=== PATIENT | male | born 1985 | race Caucasian/White ===

== ENCOUNTER 2021-11-23 14:04 | Inpatient (IN) | payer OTHER ==
[2021-11-23 16:30] VITALS: BMI 25.7
[2021-11-23] MEDS ORDERED: guaiFENesin 200 MG/10 ML 10 ML UNIT-DOSE CUPS PO PRN (16:51)
[2021-11-23] MEDS ORDERED: MAGNESIUM CITRATE 300 ML BOTTLE PO PRN (16:51)
[2021-11-23] MEDS ORDERED: MELATONIN 5 MG TABLETS PO PRN (16:51)
[2021-11-23] MEDS ORDERED: NICOTINE POLACRILEX 2 MG GUM BC PRN (16:51)
[2021-11-23] MEDS ORDERED: ACETAMINOPHEN 325 MG TABLET (FP) PO PRN (16:51)
[2021-11-23] MEDS ORDERED: hydrOXYzine PAMOATE 25 MG CAPSULE (FP) PO PRN (16:51)
[2021-11-23] MEDS ORDERED: MAG HYDROX/AL HYDROX/SIMETH 30 ML UNIT-DOSE CUP PO PRN (16:51)
[2021-11-23] MEDS ORDERED: LOPERAMIDE HCL 2 MG CAPSULE PO PRN (16:51)
[2021-11-23] MEDS ORDERED: MAGNESIUM HYDROX 2400MG/30ML ORAL SUSPENSION 30 ML CUP PO PRN (16:51)
[2021-11-23] MEDS ORDERED: IBUPROFEN 400 MG TABLET (FP) PO PRN (16:51)
[2021-11-23] MEDS ORDERED: P-EPHED 60MG/TRIPROLIDI 2.5MG TABLET PO PRN (16:51)
[2021-11-23] MEDS ORDERED: TUBERCULIN PPD 5 TU/0.1ML VIAL ID ONE (21:59)
[2021-11-23] MEDS ORDERED: THIAMINE HCL 100 MG TABLET (FP) PO SCH (22:00)
[2021-11-23 22:10] VITALS: BP 119/80; PULSE 61; TEMP 97.7
[2021-11-24] MEDS ORDERED: PRENATAL VITAMINS W/ FOLIC ACID TABLET (FP) PO SCH (10:00)
[2021-11-24 13:43] LABS: HEMATOCRIT 42.7 % (35.4-49); HEMOGLOBIN 14.2 GM/dL (11.7-16.9); MCH 30.7 pg (25.7-33.7); MCHC 33.3 g/dl (32.0-35.9); MEAN CELL VOLUME 92.3 fl (80-96); MEAN PLT VOLUME 7.5 fl (7.5-11.1); PLATELET COUNT 319 10^3/uL (134-434); RBC 4.63 M/mm3 (4.00-5.60); RDW 15.1 % (11.9-15.9); WHITE BLOOD COUNT 4.6 K/mm3 (4.0-10.0)
[2021-11-24 13:54] LABS: CALCIUM 9.1 mg/dL (8.5-10.1)
[2021-11-24 13:55] LABS: ALBUMIN 3.5 g/dl (3.4-5.0)
[2021-11-24 13:58] LABS: CREATININE 0.7 mg/dL (0.55-1.3)
[2021-11-24 14:00] LABS: BILIRUBIN,TOTAL 0.4 mg/dL (0.2-1)
[2021-11-24 16:16] LABS: SYPHILIS W/ RPR CONF REACTIVE (NONREACTIVE)
== END 2021-11-24 10:42 | disposition left against medical advice (07) | DRG 772 ==
LOC: YASAS 14:04 → Y3W 19:39 → Y3E 21:28
PROVIDERS: ADMIT Allergy & Immunology; ATTEND Psychiatry & Neurology Pain Medicine
PROC: HZ42ZZZ Group Counseling for Substance Abuse Treatment, Cognitive-Behavioral (ICD-10-PCS; principal; 2021-11-23)
DX: F10.20 Alcohol dependence, uncomplicated (principal); F14.20 Cocaine dependence, uncomplicated; F12.20 Cannabis dependence, uncomplicated; F17.210 Nicotine dependence, cigarettes, uncomplicated; F91.8 Other conduct disorders; Z91.19 Patient's noncompliance with other medical treatment and regimen
CPT/HCPCS: 36415; 80053; 85027; 86593; 86780; 86803; C9803-CS; U0003; U0005

== ENCOUNTER 2022-09-15 22:57 | Inpatient (IN) | payer OTHER ==
[2022-09-16] MEDS ORDERED: DALBAVANCIN HCL 1,500 MG in DEXTROSE 5%-WATER - 500 ML IVPB ONE (00:21)
[2022-09-16] MEDS ORDERED: DALBAVANCIN HCL 500 MG VIAL (RESTRICTED TO ID ONLY) IVPB ONE (00:49)
[2022-09-16 01:03] LABS: EOS % 3.2 % (0-4.5); HEMATOCRIT 40.5 % (35.4-49); LYMPH % 39.5 % (8-40); MCHC 34.5 g/dl (32.0-35.9); MEAN PLT VOLUME 7.2 fl (7.5-11.1); MONO % 8.1 % (3.8-10.2); NEUT % 48.2 % (42.8-82.8); PLATELET COUNT 302 10^3/uL (134-434); RBC 4.36 M/mm3 (4.00-5.60); RDW 14.1 % (11.9-15.9); WHITE BLOOD COUNT 5.7 K/mm3 (4.0-10.0)
[2022-09-16] MEDS: CLOTRIMAZOLE 1% CREAM TP SCH ×3 (01:06→22:54)
[2022-09-16 01:19] LABS: POTASSIUM 4.2 mmol/L (3.5-5.1)
[2022-09-16 01:21] LABS: CALCIUM 8.8 mg/dL (8.5-10.1)
[2022-09-16 01:22] LABS: ALBUMIN 3.2 g/dl (3.4-5.0); BLOOD UREA NITROGEN 14.3 mg/dL (7-18)
[2022-09-16 01:25] LABS: CREATININE 0.7 mg/dL (0.55-1.3)
[2022-09-16 01:27] LABS: BILIRUBIN,TOTAL 0.2 mg/dL (0.2-1); TOT PROT 6.5 g/dl (6.4-8.2)
[2022-09-16] MEDS ORDERED: BACITRACIN 0.9 GM PACKET ONE (09:49)
[2022-09-16] MEDS: BACITRACIN ZINC 15 GM TUBE TOPICAL OINTMENT TP SCH ×2 (09:50→21:54)
[2022-09-16] MEDS ORDERED: AMPICILLIN NA/SULBACTAM NA 3 GM in SODIUM CHLORIDE 100 ML IVPB SCH ×2 (10:00→17:07)
[2022-09-16 13:57] VITALS: RESP 18
[2022-09-16 14:45] VITALS: BMI 24.2
[2022-09-17 08:21] LABS: BASO % 0.5 % (0-2.0); EOS % 1.8 % (0-4.5); HEMATOCRIT 42.7 % (35.4-49); HEMOGLOBIN 14.6 GM/dL (11.7-16.9); LYMPH % 20.6 % (8-40); MCH 31.6 pg (25.7-33.7); MCHC 34.2 g/dl (32.0-35.9); MEAN CELL VOLUME 92.5 fl (80-96); MEAN PLT VOLUME 6.6 fl (7.5-11.1); MONO % 7.1 % (3.8-10.2); PLATELET COUNT 328 10^3/uL (134-434); RBC 4.62 M/mm3 (4.00-5.60); RDW 14.2 % (11.9-15.9); WHITE BLOOD COUNT 6.3 K/mm3 (4.0-10.0)
[2022-09-17 08:30] VITALS: BP 138/91; PULSE 83; TEMP 98.9
[2022-09-17 08:34] LABS: CALCIUM 8.6 mg/dL (8.5-10.1)
[2022-09-17 08:38] LABS: CREATININE 0.7 mg/dL (0.55-1.3)
[2022-09-17] MEDS: CLOTRIMAZOLE 1% CREAM TP SCH (09:44)
[2022-09-17] MEDS: BACITRACIN ZINC 15 GM TUBE TOPICAL OINTMENT TP SCH (10:09)
[2022-09-17] MEDS ORDERED: ENOXAPARIN NA (PORCINE) 40 MG/0.4 ML DISP.SYRIN SQ SCH (11:15)
[2022-09-17 12:10] LABS: HIV INTERPRETATION NEGATIVE (NEGATIVE)
== END 2022-09-17 13:47 | disposition left against medical advice (07) | DRG 501 ==
LOC: JER 22:57 → JERBED 09-16 00:20 → J7W 09-16 14:16
PROVIDERS: ADMIT Internal Medicine
DX: N50.9 Disorder of male genital organs, unspecified (principal); F17.210 Nicotine dependence, cigarettes, uncomplicated; F14.20 Cocaine dependence, uncomplicated; F31.9 Bipolar disorder, unspecified; Z59.00 Homelessness unspecified; Z86.19 Personal history of other infectious and parasitic diseases
CPT/HCPCS: 0241U-QW; 36415; 76870-TC; 80048; 80053; 85025; 86593; 86780; 87070; 87186; 87205; 87389; 87491; 87529; 87591; 87661; 99285-25; J0875